=== PATIENT | female | born 2005 | race Caucasian/White ===

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

== ENCOUNTER 2025-01-31 01:28 | Emergency (ER) | payer OTHER ==
[~2025-01-31] VITALS: Ht 162.6 cm; Wt 72.6 kg
[~2025-01-31 01:28] MED LIST changes: -Glycopyrrolate 0.2 MG/ML 1MLVIAL ONE; -Ondansetron HCl 2 MG / ML 2ML Vial ONE; -ePHEDrine Sulfate 50 MG/ML 1ML Injection ONE
[2025-01-31 02:59] LABS: CORONAVIRUS COVID-19 AG Negative (NEGATIVE)
[2025-01-31 03:18] VITALS: BP 116/67
== END 2025-01-31 03:19 | disposition home or self-care (01) ==
LOC: ER 01:28
PROVIDERS: Emergency Medicine
DX: J02.9 Acute pharyngitis, unspecified (principal); Z59.89 Other problems related to housing and economic circumstances
CPT/HCPCS: 87428-QW; 99283